=== PATIENT | female | born 1960 | race Caucasian/White ===

== ENCOUNTER 2023-09-19 08:55 | Outpatient (RCR) | payer OTHER, SELFPAY | END 2023-09-19 23:59 | disposition home or self-care (01) | LOC: RPT 08:55 | PROVIDERS: ATTENDING PHYSICIAN Family Medicine Geriatric Medicine; PRIMARYCARE PHYSICIAN Family Medicine | DX: R15.9 Full incontinence of feces (principal); R15.2 Fecal urgency; M62.89 Other specified disorders of muscle; Z73.6 Limitation of activities due to disability; C20 Malignant neoplasm of rectum; Z98.0 Intestinal bypass and anastomosis status | CPT/HCPCS: 97140; 97530 ==

== ENCOUNTER → 2023-10-09 13:31 | Outpatient (REF) | payer OTHER, SELFPAY | LOC: RAD 13:31 | PROVIDERS: ATTENDING PHYSICIAN Internal Medicine Hematology & Oncology; FAMILY PHYSICIAN Family Medicine | DX: C20 Malignant neoplasm of rectum (principal) | CPT/HCPCS: 71260; 74177; Q9967 ==

== ENCOUNTER 2023-10-20 09:56 | Outpatient (RCR) | payer OTHER, SELFPAY | END 2023-10-20 23:59 | disposition home or self-care (01) | LOC: RPT 09:56 | PROVIDERS: ATTENDING PHYSICIAN Family Medicine Geriatric Medicine; PRIMARYCARE PHYSICIAN Family Medicine | DX: R15.9 Full incontinence of feces (principal); R15.2 Fecal urgency; M62.89 Other specified disorders of muscle; Z73.6 Limitation of activities due to disability; C20 Malignant neoplasm of rectum; Z98.0 Intestinal bypass and anastomosis status | CPT/HCPCS: 97014; 97112; 97140; 97530 ==

== ENCOUNTER → 2023-10-23 08:52 | Outpatient (REF) | payer OTHER, SELFPAY | LOC: PET 08:52 | PROVIDERS: ATTENDING PHYSICIAN Internal Medicine Hematology & Oncology | DX: C20 Malignant neoplasm of rectum (principal) | CPT/HCPCS: 78815; A9552 ==

== ENCOUNTER → 2023-11-06 15:24 | Outpatient (REF) | payer OTHER, SELFPAY | LOC: MRI 3T 15:24 | PROVIDERS: ATTENDING PHYSICIAN Internal Medicine Hematology & Oncology; FAMILY PHYSICIAN Family Medicine; REFERRING PHYSICIAN Radiology Radiation Oncology | DX: C20 Malignant neoplasm of rectum (principal) | CPT/HCPCS: 72197; A9575 ==

== ENCOUNTER → 2024-02-02 12:29 | Outpatient (REF) | payer MEDICARE, SELFPAY | LOC: WDC 12:29 | PROVIDERS: ATTENDING PHYSICIAN Student in an Organized Health Care Education/Training Program | DX: Z12.31 Encounter for screening mammogram for malignant neoplasm of breast (principal) | CPT/HCPCS: 77063; 77067 ==

== ENCOUNTER → 2024-02-05 10:02 | Outpatient (REF) | payer MEDICARE, SELFPAY | LOC: WDC 10:02 | PROVIDERS: ATTENDING PHYSICIAN Student in an Organized Health Care Education/Training Program | DX: R92.8 Other abnormal and inconclusive findings on diagnostic imaging of breast (principal) | CPT/HCPCS: 76642 ==

== ENCOUNTER → 2025-03-03 08:42 | Outpatient (REF) | payer MEDICARE, SELFPAY | LOC: WDC 08:42 | PROVIDERS: ATTENDING PHYSICIAN Nurse Practitioner Family; FAMILY PHYSICIAN Student in an Organized Health Care Education/Training Program | DX: Z12.31 Encounter for screening mammogram for malignant neoplasm of breast (principal) | CPT/HCPCS: 77063; 77067 ==